=== PATIENT | female | born 1995 | race Caucasian/White ===

== ENCOUNTER 2017-11-17 09:11 | Emergency (ER) | payer OTHER ==
[~2017-11-17] VITALS: Ht 170.2 cm; Wt 68.2 kg
[2017-11-17 09:54] LABS: URINE HCG NEGATIVE (NEG)
[2017-11-17] MEDS ORDERED: meclizine 12.5mg tablet PO ONE (09:55)
[2017-11-17] MEDS ORDERED: ondansetron 4mg rapidly disintigrating tab PO ONE (09:55)
[2017-11-17] MEDS ORDERED: ONDA4TAB6 PO (09:59)
[2017-11-17] MEDS ORDERED: MECL-111 PO (09:59)
[2017-11-17 10:12] LABS: CLARITY,URINE CLEAR (Clear); COLOR,URINE YELLOW (Yellow); GLUCOSE, URINE NEGATIVE (Neg); KETONES,URINE 15 mg/dl (Neg); LEUKOCYTE ESTERASE ,URINE SMALL (Neg); NITRITES, URINE NEGATIVE (Neg); OCCULT BLOOD,URINE SMALL (Neg); PH,URINE 8.5 (4.8-8.0); PROTEIN,URINE NEGATIVE (Neg); UROBILINOGEN,URINE 0.2 E.U/dL (0.2-1.0)
[2017-11-17 10:14] VITALS: BP 113/65
[2017-11-17 10:16] LABS: UA COLLECTION TYPE CLN CATCH MIDSTREAM
[2017-11-17 10:58] LABS: MUCUS STRANDS NONE SEEN /LPF (Neg); SQUAMOUS EPITHELIAL CELL,UR MANY /LPF (FEW)
[2017-11-17 11:01] LABS: BACTERIA,URINE 2+ /HPF (Neg)
[2017-11-17 11:02] LABS: TRANSITIONAL EPI CELLS,URINE MODERATE /HPF
== END 2017-11-17 10:10 | disposition home or self-care (01) ==
LOC: ER 09:11
DX: R42 Dizziness and giddiness (principal); Z79.899 Other long term (current) drug therapy
CPT/HCPCS: 81001; 81025; 99284; J8597